=== PATIENT | male | born 1930 | race Caucasian/White ===

== ENCOUNTER 2018-12-16 12:22 | Inpatient (IN) ==
[2018-12-16 13:13] LABS: Apearance,Urine CLEAR (Clear); Bilirubin,Urine Negative (Negative); Blood, Urine Negative (Negative); Calcium Oxalate Crystals,Urine Occasional /HPF (Few); Glucose,Urine (UA) Negative (Negative); Hyaline Casts,Urine 5 /LPF (0-3); Ketones,Urine 5 mg/dL (Negative); Mucus,Urine Occasional /LPF (Occasional); Nitrite,Urine Negative (Negative); Protein,Urine Negative; RBC,Urine 1 /HPF (0-4); Sperm,Urine Occasional /HPF (Negative); Squamous Epithelial Cell,Urine Occasional /HPF (0-10); Urine Color Yellow (Yellow); Urine Specific Gravity 1.018 (1.001-1.035); Urine Urobilinogen < 2.0 EU/DL (0.2-1.0)
[2018-12-16 13:14] LABS: WBC,Urine 1 /HPF (0-6)
[2018-12-16] MEDS ORDERED: ONDANSETRON 4 MG/2 ML VIAL IV PRN (15:24)
[2018-12-16] MEDS ORDERED: BISACODYL 5 MG TABLET PO PRN (15:24)
[2018-12-16] MEDS ORDERED: HYDROmorphone 2 MG/1 ML VIAL IV PRN (15:24)
[2018-12-16] MEDS ORDERED: ACETAMINOPHEN 325 MG TABLET PO PRN (15:24)
[2018-12-16] MEDS ORDERED: KETOROLAC 10 MG TABLET PO PRN (15:24)
[2018-12-16] MEDS ORDERED: ceFAZolin 1,000 MG in SYRINGE 1 EACH IV ONE (15:28)
[2018-12-16 15:46] LABS: Basophils % 0.5 % (0.0-0.8); Eosinophils # 0.3 10*3/uL (0.0-0.87); Hemoglobin 14.5 GM/DL (14.0-18.0); Immature Granulocytes % 0.4 %; Immature Granulocytes Absolute 0.03 #; Lymphocytes # 1.7 10*3/uL (1.4-4.0); Lymphocytes % 22.5 % (21.2-54.2); Mean Corpuscular HGB Conc 32.2 GM/DL (32-36); Mean Corpuscular Volume 90.5 FL (87-102); Mean Platelet Volume 9.9 FL (9.6-12.0); Monocytes % 13.6 % (1.7-12.7); Platelet Count 209 T/CUMM (130-400); Red Blood Count 4.97 MC/CUMM (3.8-5.5); Red Cell Distribution Width 11.3 % (9.3-17.3); White Blood Count 7.5 T/CUMM (4-12)
[2018-12-16 15:57] LABS: Alanine Aminotransferase 18 U/L (16-61); Albumin 3.9 G/DL (3.4-5.0); Alkaline Phosphatase 93 U/L (45-117); Aspartate Amino Transferase 13 U/L (0-37); Bilirubin,Total < 0.39 MG/DL (0.2-1.0); Blood Urea Nitrogen 18 MG/DL (7-18); Calcium 8.9 MG/DL (8.5-10.1); Glucose 90 MG/DL (74-106); Osmolality,Calculated 280.4 MOS/KG (273-304); Total Protein 6.8 G/DL (6.4-8.3)
[2018-12-16] MEDS ORDERED: ceFAZolin 1,000 MG VIAL ONE (16:46)
[2018-12-16] MEDS ORDERED: HYDROmorphone 2 MG/1 ML VIAL ONE (16:46)
[2018-12-16] MEDS: HYDROmorphone 2 MG/1 ML VIAL IV PRN (16:56)
[2018-12-16] MEDS: LACTATED RINGERS 1,000 ML IV SCH (18:13)
[2018-12-17] MEDS: HYDROmorphone 2 MG/1 ML VIAL IV PRN ×2 (05:18→14:35)
[2018-12-17] MEDS ORDERED: VANCOMYCIN 1,000 MG VIAL ONE (06:23)
[2018-12-17] MEDS ORDERED: BUPIVACAINE MPF 0.25% 30 ML VIAL ONE (06:23)
[2018-12-17] MEDS ORDERED: LIDOCAINE 1%/EPI INJ 20 ML VIAL ONE (06:23)
[2018-12-17] MEDS ORDERED: ceFAZolin 1,000 MG VIAL ONE (07:03)
[2018-12-17 07:21] LABS: Apearance,Urine CLEAR (Clear); Bacteria,Urine Occasional /HPF (Few); Bilirubin,Urine Negative (Negative); Blood, Urine Negative (Negative); Glucose,Urine (UA) Negative (Negative); Ketones,Urine 5 mg/dL (Negative); Mucus,Urine Occasional /LPF (Occasional); Nitrite,Urine Negative (Negative); Protein,Urine Negative; RBC,Urine <1 /HPF (0-4); Squamous Epithelial Cell,Urine Occasional /HPF (0-10); Urine Color Straw (Yellow); Urine Urobilinogen < 2.0 EU/DL (0.2-1.0); WBC,Urine <1 /HPF (0-6)
[2018-12-17] MEDS ORDERED: PROPOFOL 200 MG/20 ML VIAL IV ONE (08:51)
[2018-12-17] MEDS ORDERED: SEVOFLURANE 1 UNIT/15 MINUTE INH ONE (08:51)
[2018-12-17] MEDS ORDERED: fentaNYL 100 MCG/2 ML VIAL ONE (08:51)
[2018-12-17] MEDS ORDERED: PHENYLEPHRINE 1 MG/10 ML SYRINGE IV ONE (08:52)
[2018-12-17] MEDS ORDERED: ePHEDrine 50 MG/ML AMP ONE (08:52)
[2018-12-17] MEDS ORDERED: DEXAMETHASONE 4 MG/1 ML VIAL ONE (08:52)
[2018-12-17] MEDS ORDERED: LACTATED RINGERS 1,000 ML IV ONE (08:52)
[2018-12-17] MEDS ORDERED: ACETAMINOPHEN 1,000 MG/100 ML VIAL IV ONE (08:52)
[2018-12-17] MEDS ORDERED: ONDANSETRON 4 MG/2 ML VIAL ONE (08:52)
[2018-12-17] MEDS ORDERED: KETOROLAC 30 MG/1 ML VIAL ONE (08:52)
[2018-12-17] MEDS: PANTOPRAZOLE 40 MG TABLET PO SCH (10:56)
[2018-12-17] MEDS: LACTATED RINGERS 1,000 ML IV SCH (10:59)
[2018-12-18] MEDS ORDERED: FUROSEMIDE 40 MG/4 ML VIAL IV ONE (08:09)
[2018-12-18] MEDS: PANTOPRAZOLE 40 MG TABLET PO SCH (08:40)
[2018-12-18 12:09] VITALS: BP 158/80
== END 2018-12-18 12:35 | disposition home health service (06) | DRG 352 ==
LOC: N.ED 12:22 → N.EDINP 15:24 → N.4E 17:29
PROVIDERS: ADMIT Surgery; ATTEND Surgery

== ENCOUNTER 2020-06-09 11:16 | Inpatient (IN) ==
[~2020-06-09 11:16] MED LIST: HEPARIN/NACL 0.9% 2 UNITS/ML 1,000 ML IV ONE; HYDROmorphone 2 MG/1 ML VIAL ONE; LIDOCAINE 1% 20 ML VIAL ONE; MIDAZOLAM 2 MG/2 ML VIAL ONE; NITROGLYCERIN DRIP 50 MG/250 ML BOTTLE IV ONE; VERAPAMIL 5 MG/2 ML VIAL ONE
[2020-06-09] MEDS ORDERED: EPTIFIBATIDE 20,000 MCG/10 ML VIAL ONE ×2 (11:21→11:34)
[2020-06-09] MEDS ORDERED: EPTIFIBATIDE 75 MG/100 ML BOTTLE IV ONE (11:24)
[2020-06-09] MEDS ORDERED: EPTIFIBATIDE 75 MG/100 ML BOTTLE IV SCH (11:26)
[2020-06-09] MEDS ORDERED: ACETAMINOPHEN 325 MG TABLET PO PRN (12:08)
[2020-06-09 12:09] LABS: Basophils % 0.1 % (0.0-0.8); Hematocrit 32.8 VOL% (42.0-52.0); Hemoglobin 10.9 GM/DL (14.0-18.0); Immature Granulocytes % 0.7 %; Immature Granulocytes Absolute 0.12 #; Lymphocytes # 0.8 10*3/uL (1.4-4.0); Lymphocytes % 4.4 % (21.2-54.2); Mean Corpuscular HGB Conc 33.2 GM/DL (32-36); Mean Corpuscular Volume 91.6 FL (87-102); Mean Platelet Volume 9.7 FL (9.6-12.0); Monocytes % 16.8 % (1.7-12.7); Platelet Count 157 T/CUMM (130-400); Red Blood Count 3.58 MC/CUMM (3.8-5.5); Red Cell Distribution Width 11.9 % (9.3-17.3); White Blood Count 18.1 T/CUMM (4-12)
[2020-06-09] MEDS ORDERED: SODIUM CHLORIDE 0.9% 1,000 ML IV SCH (12:30)
[2020-06-09] MEDS ORDERED: diphenhydrAMINE CAP 25 MG CAPSULE PO PRN (12:40)
[2020-06-09 12:42] LABS: Anisocytosis Slight; Band Neutrophils 8 % (0-10); Lymphocytes 4 % (20-55); Platelet Estimate Normal; Segmented Neutrophils 67 % (50-85); Total Cells Counted 100
[2020-06-09 13:01] LABS: CKMB % 3.9 %; Calcium 7.4 MG/DL (8.5-10.1)
[2020-06-09 13:02] LABS: Troponin I 31.4 NG/ML (0.00-0.045)
[2020-06-09] MEDS: TICAGRELOR 90 MG TABLET PO SCH (20:47)
[2020-06-09] MEDS: MULTIVITAMIN (OCUVITE) TABLET PO SCH (20:47)
[2020-06-09 20:57] LABS: CKMB % 3.7 %
[2020-06-09] MEDS ORDERED: GABAPENTIN 600 MG TABLET PO SCH (21:00)
[2020-06-09] MEDS ORDERED: traZODone 50 MG TABLET PO SCH (21:00)
[2020-06-09] MEDS ORDERED: TAMSULOSIN 0.4 MG CAPSULE PO SCH (21:00)
[2020-06-09] MEDS ORDERED: ROSUVASTATIN 20 MG TABLET PO SCH (21:00)
[2020-06-09 21:07] LABS: Troponin I 50.1 NG/ML (0.00-0.045)
[2020-06-10 06:00] LABS: Basophils % 0.1 % (0.0-0.8); Hematocrit 37.1 VOL% (42.0-52.0); Immature Granulocytes % 0.7 %; Immature Granulocytes Absolute 0.11 #; Lymphocytes # 0.6 10*3/uL (1.4-4.0); Lymphocytes % 4.1 % (21.2-54.2); Mean Corpuscular HGB Conc 32.3 GM/DL (32-36); Mean Corpuscular Volume 92.1 FL (87-102); Monocytes % 14.1 % (1.7-12.7); Platelet Count 166 T/CUMM (130-400); Red Blood Count 4.03 MC/CUMM (3.8-5.5); Red Cell Distribution Width 12.2 % (9.3-17.3); White Blood Count 15.3 T/CUMM (4-12)
[2020-06-10 06:19] LABS: Calcium 8.2 MG/DL (8.5-10.1); Risk Ratio 1.5; VLDL CHOLESTEROL 11.2 MG/DL
[2020-06-10 06:23] LABS: Band Neutrophils 8 % (0-10); Burr Cells Few; Lymphocytes 5 % (20-55); Platelet Estimate Normal; Segmented Neutrophils 71 % (50-85); Total Cells Counted 100
[2020-06-10 06:24] LABS: Anisocytosis Slight; Ovalocytes Few; Spherocytes Few
[2020-06-10 06:37] LABS: CKMB % 2.9 %
[2020-06-10 06:40] LABS: Troponin I 35.8 NG/ML (0.00-0.045)
[2020-06-10 07:32] LABS: Calcium 8.4 MG/DL (8.5-10.1)
[2020-06-10] MEDS ORDERED: DILTIAZEM 25 MG/5 ML VIAL IV ONE (07:38)
[2020-06-10] MEDS: MULTIVITAMIN (OCUVITE) TABLET PO SCH (08:55)
[2020-06-10] MEDS: TICAGRELOR 90 MG TABLET PO SCH (08:56)
[2020-06-10] MEDS ORDERED: ASPIRIN EC 81 MG TABLET PO SCH (09:00)
[2020-06-10] MEDS ORDERED: MULTIVITAMIN (CENTRUM) TABLET PO SCH (09:00)
[2020-06-10] MEDS ORDERED: CALCIUM (CARBONATE) 600 MG TABLET PO SCH (09:00)
[2020-06-10] MEDS ORDERED: predniSONE 5 MG TABLET PO SCH (09:00)
[2020-06-10] MEDS ORDERED: AMIODARONE INJ 150 MG in DEXTROSE 5% 100 ML IV ONE (09:14)
[2020-06-10] MEDS ORDERED: AMIODARONE INJ 450 MG in DEXTROSE 5% 241 ML IV SCH ×2 (09:30→16:00)
[2020-06-10] MEDS ORDERED: SODIUM CHLORIDE 0.9% 1,000 ML IV SCH (10:30)
[2020-06-10] MEDS ORDERED: METOPROLOL TARTRATE 5 MG/5 ML VIAL IV ONE ×3 (10:34→17:10)
[2020-06-10] MEDS: CLORAZEPATE 7.5 MG TABLET PO PRN ×2 (10:44→16:57)
[2020-06-10] MEDS ORDERED: ETOMIDATE 20 MG/10 ML VIAL IV ONE (17:37)
[2020-06-10] MEDS ORDERED: METOPROLOL SUCCINATE XL 25 MG TABLET PO SCH (18:00)
[2020-06-10 19:27] VITALS: BP 135/95
[2020-06-10] MEDS ORDERED: ASCORBIC ACID 500 MG TABLET PO SCH (21:00)
== END 2020-06-10 18:07 | disposition expired | DRG 247 ==
LOC: N.CL 11:16 → N.ICU 11:17
PROVIDERS: ADMIT Internal Medicine Cardiovascular Disease; ATTEND Internal Medicine Cardiovascular Disease